=== PATIENT | female | born 1960 ===

== ENCOUNTER 2021-05-21 15:40 | Emergency (ER) | payer MEDICAID ==
[~2021-05-21] VITALS: Ht 157.5 cm; Wt 61.0 kg
[2021-05-21] MEDS ORDERED: ondansetron/PF 4mg/2ml inj IV ONE (18:05)
[2021-05-21] MEDS ORDERED: normal saline 1000ML IV soln IVB ONE (18:05)
[2021-05-21] MEDS ORDERED: etomidate 2mg/ml inj. IV ONE (18:10)
[2021-05-21] MEDS ORDERED: fentaNYL/PF 50MCG/1 ML 2ML syringe IV ONE (18:10)
[2021-05-21] MEDS ORDERED: ONDA4TAB6 PO (18:43)
[2021-05-21] MEDS ORDERED: NAPR-56 PO (18:43)
[2021-05-21] MEDS ORDERED: TRAM50TA2 PO (18:43)
[2021-05-21 19:10] VITALS: BP 171/108
== END 2021-05-21 19:13 | disposition home or self-care (01) ==
LOC: ER 15:43
DX: S43.004A Unspecified dislocation of right shoulder joint, initial encounter (principal); W19.XXXA Unspecified fall, initial encounter; Y93.89 Activity, other specified; Y92.89 Other specified places as the place of occurrence of the external cause; Y99.8 Other external cause status
CPT/HCPCS: 23650; 73020; 73030; 99284